=== PATIENT | female | born 1970 | race Caucasian/White ===

== ENCOUNTER 2020-11-27 03:06 | Emergency (ER) | payer OTHER ==
[~2020-11-27] VITALS: Ht 165.1 cm; Wt 63.5 kg
[2020-11-27 03:10] VITALS: BP 154/82
--- NOTE | 2020-11-27 03:25 | NUR ---
urine collected and sent to the lab
--- NOTE | 2020-11-27 03:28 | NUR ---
PRESENTED TO THE ER FOR C/O L FLANK PAIN. - HEMATURIA OR DYSURIA. URINE SAMPLE OBTAINED. PT WAS PLACED IN BED 9 ER, ON MONITOR ,
[2020-11-27 03:53] LABS: BILIRUBIN,URINE NEGATIVE (NEGATIVE); COLOR,URINE YELLOW (YELLOW); LEUKOCYTE ESTERASE ,URINE LARGE (NEGATIVE); NITRITE, URINE POSITIVE (NEGATIVE); PROTEIN,URINE NEGATIVE (NEGATIVE); UGLUCOSE NEGATIVE (NEGATIVE)
[2020-11-27] MEDS ORDERED: ONDANSETRON 4 MG TAB.RAPDIS PO ONE (04:00)
[2020-11-27] MEDS ORDERED: NITR100C6 PO (04:10)
[2020-11-27] MEDS ORDERED: NITROFURANTOIN/NITROFURAN MONOHYDRATE 100 MG CAPSULE ONE (04:12)
[2020-11-27] MEDS ORDERED: ONDANSETRON 4 MG TAB.RAPDIS ONE (04:12)
--- NOTE | 2020-11-27 04:18 | NUR ---
Patient discharged to home in stable condition. Written and verbal after care instructions given. Patient verbalizes understanding of instruction.
[2020-11-27 04:19] LABS: BACTERIA,URINE Moderate /HPF (None Seen)
[2020-11-27 04:20] LABS: SQUAMOUS EPITHELIAL CELL,UR Few /HPF (None Seen); URINE AMORPHOUS PHOSPHATES Many /HPF (None Seen)
[2020-11-27] MEDS ORDERED: NITROFURANTOIN/NITROFURAN MONOHYDRATE 100 MG CAPSULE PO ONE (04:30)
== END 2020-11-27 04:18 | disposition home or self-care (01) ==
LOC: ER 03:12
DX: N39.0 Urinary tract infection, site not specified (principal); Z98.890 Other specified postprocedural states
CPT/HCPCS: 81001; 87086; 99283; Q0162; 87186-TC